=== PATIENT | female | born 1950 | race Caucasian/White ===

== ENCOUNTER 2023-11-19 14:58 | Emergency (ER) | payer MEDICARE, SELFPAY ==
--- NOTE | ~2023-11-19 | XR_ITS ---
EXAMINATION: XR hip RT 2V w AP pelvis DATE: 11/19/2023 16:01 INDICATION: Right hip pain. Fall. TECHNIQUE: An anteroposterior view of the pelvis and 2 views of right hip were obtained. COMPARISON: None. FINDINGS: There is lumbar dextrocurvature and severe spondylosis. No fracture. There is mild osteoart hritis of the hips. Osseous pubis is noted. IMPRESSION: 1. Mild osteoarthritis of the hips. Reviewed, dictated and finalized at location A.
--- NOTE | ~2023-11-19 | CT_ITS ---
CT pelvis wo con Ordering provider: Sofy Kumari PA-C History: . fall, concern for occult fx . Comparison: None Technique: CT pelvis without oral and IV contrast. . Automated exposure control and iterative recons truction technique were employed. The dose-length product was 1025.14 mGy-cm. Findings: BONES: Comminuted Fracture of the right iliac bone extending to the right sacroiliac joint. Fracture in the sacrococcygeal area is highly suggestive. Aage appropriate degenerative changes of the visuali zed lower lumbar spine. The hip and sacroiliac joint spaces are well maintained. SUPERFICIAL SOFT TISSUES: Normal. PELVIC ORGANS: The bladder is normal. Areas seen in the urinary bladder may be post catheterization. Clinical correlation advised. VISUALIZED BOWEL AND MESENTERY: Normal. No free air or free fluid. No lymphadenopathy. Diverticulosis of the sigmoid colon. RETROPERITONEUM: Mild atheromatous disease. IMPRESSION: Comminuted fracture of the right iliac bone extending to the right sacroiliac joint. Possible fracture at the sacrococcygeal area. Reviewed, dictated and finalized at location A. IMPRESSION: Comminuted fracture of the right iliac bone extending to the right sacroiliac j oint. Possible fracture at the sacrococcygeal area.
[2023-11-19 15:13] VITALS: BP 141/78; PULSE 77; RESP 14; TEMP 36.4; O2SAT 100
[2023-11-19 16:49] VITALS: BP 110/67; PULSE 73; RESP 18; TEMP 36.4; O2SAT 96
--- NOTE | 2023-11-19 17:42 | ED.LOWEXIN ---
HPI - Extremity Injury (Lower) General Chief Complaint: Extremity Injury, Lower Stated Complaint: fell, right hip pain Time Seen by Provider: 11/19/23 17:25 History of Present Illness HPI Narrative: 73-year-old female presents to emergency department for right hip/back pain after a mechanical fall. Patient states around 1:30 p.m. today she was stepping out of her camper when she stepped in a pothole and fell. She landed on her right hip/back. She states she has been unable to bear weight since. She did not hit her head or lose consciousness. She denies other injuries acquired. Denies saddle anesthesia, bowel or bladder incontinence, urinary tension. Patient lives in [place] and plans to return home tomorrow. Related Data Allergies Allergy/AdvReac Type Severity Reaction Status Date / Time No Known Allergies Allergy Verified 11/19/23 15:16 Review of Systems Review of Systems: All systems reviewed & are unremarkable except as noted in HPI and below Exam Narrative: GENERAL: Well-appearing, well-nourished, and in no acute distress. HEAD: Normocephalic, atraumatic. ENT: Nares clear, no rhinorrhea or epistaxis. Mucous membranes moist. NECK: No midline cervical spinous tenderness, step-offs or deformities BACK: No midline thoracolumbar spinous tenderness, step-offs or deformities. Tenderness to the right ischium on palpation with no overlying skin changes or deformities. CHEST: Clear to auscultation. No respiratory distress. HEART: Regular rate and rhythm. No murmur heard. Normal peripheral pulses. EXTREMITIES: No tenderness to the upper lower extremities bilaterally including hips. DP pulses 2+. Sensation intact. Pain with range of motion of the right lower extremity. SKIN: Warm, dry, no rash. NEURO: No focal deficits. Alert and oriented x3 Course Vital Signs Vital signs: Vital Signs Temperature 97.6 F 11/19/23 15:13 Pulse Rate 77 11/19/23 15:13 Respiratory Rate 14 11/19/23 15:13 Blood Pressure 141/78 H 11/19/23 15:13 Pulse Oximetry 100 11/19/23 15:13 Oxygen Delivery Room Air 11/19/23 15:13 Temperature 97.5 F L 11/19/23 16:49 Pulse Rate 73 11/19/23 16:49 Respiratory Rate 18 11/19/23 16:49 Blood Pressure 110/67 11/19/23 16:49 Pulse Oximetry 96 11/19/23 16:49 Oxygen Delivery Room Air 11/19/23 15:13 MDM - Extremity Injury (Lower) MDM Narrative Medical decision making narrative: 73-year-old female presents to the emergency department for right buttock pain after a mechanical fall that occurred this afternoon. Vitals are stable. Exam significant for tenderness to the right ischium on palpation without overlying skin changes or deformity. No head injury or LOC. No cervical, thoracic or lumbar spinous tenderness, step-offs or deformities. She is otherwise atraumatic. X-ray of the right hip and pelvis obtained in triage shows mild osteoarthritis of the hips, no acute osseous abnormalities. Given patient's head is unable to bear weight, I discussed concerns for a occult fracture and further workup including a CT without contrast of the right pelvis. She is agreeable with this. CT of the pelvis shows comminuted fracture of the right iliac bone extending to the right sacroiliac joint and possible fracture of the sacrococcygeal area. Patient is updated on workup. She was given lidocaine patch, Flexeril and Tylenol with improvement in her pain. States she does not feel much pain without moving. She lives in [place] and is requesting to go back to [place]. I discussed case with orthopedic surgeon, Dr. Palmer, who states that this is likely nonsurgical and the patient can leave if she desires. Recommends nonweightbearing, daily 325 mg of aspirin to prevent DVT and pain medications. I discussed strict ED return precautions with the patient and importance for close follow-up. She is agreeable to plan verbalized understanding. Discharged in stable condition. Discharge Plan Disc
[2023-11-19] MEDS: ACETAMINOPHEN 500 MG TABLET 1000 MG PO (18:07)
[2023-11-19] MEDS: LIDOCAINE 5% PATCH 1 PATCH TRANSDERM (18:08)
[2023-11-19] MEDS: CYCLOBENZAPRINE HCL 5 MG TABLET PO (18:08)
== END 2023-11-19 19:15 | disposition home or self-care (01) ==
PROVIDERS: Emergency Provider Physician Assistant
DX: S32.301A Unspecified fracture of right ilium, initial encounter for closed fracture (principal); W18.30XA Fall on same level, unspecified, initial encounter
CPT/HCPCS: 72192; 73502; 99284; A9270